=== PATIENT | male | born 1990 | race Caucasian/White ===

== ENCOUNTER 2020-06-06 12:30 | Emergency (ER) | payer MEDICAID ==
[~2020-06-06] VITALS: Ht 175.3 cm; Wt 72.6 kg
--- NOTE | 2020-06-06 12:50 | NUR ---
Covid swab collected and walked to lab
[2020-06-06 12:51] VITALS: BP 130/78
--- NOTE | 2020-06-06 12:55 | NUR ---
BIB SELF C/O LOSS OF TASTE/SMELL, BODY ACHE 6/10 X 3 DAYS.FAMILY HAD COVID TESTED +.
--- NOTE | 2020-06-06 13:57 | NUR ---
Patient discharged withOUT SIGNING. Written and verbal after care instructions given and explained. Patient verbalized understanding. Ambulatory with steady gait. All questions addressed prior to discharge. Advised to follow up with PMD.
[2020-06-06 13:59] VITALS: BP 130/78
== END 2020-06-06 13:57 | disposition home or self-care (01) ==
LOC: MED 12:30
DX: U07.1 COVID-19 (principal); R43.8 Other disturbances of smell and taste; M79.10 Myalgia, unspecified site
CPT/HCPCS: 99283; U0003